=== PATIENT | female | born 1995 | race Hispanic/Latino ===

== ENCOUNTER 2016-08-04 22:50 | Inpatient (IN) | payer OTHER ==
[~2016-08-04] VITALS: Ht 147.3 cm; Wt 68.0 kg
[2016-08-04 22:57] VITALS: BP 138/85
[2016-08-04] MEDS ORDERED: PRENTAB55 PO (23:14)
[2016-08-04] MEDS ORDERED: PENICILLIN G POTASSIUM IV 5 MU in D5W MINI-BAG PLUS 100 ML IV STA (23:18)
[2016-08-04] MEDS: LR 1,000 ML IV SCH (23:58)
[2016-08-05] VITALS (44 sets, daily range): BP systolic 111–157; BP diastolic 57–103
[2016-08-05 00:13] LABS: MEAN CORPUSCULAR HGB CONC 31.3 g/dl (32.0-36.5); MEAN CORPUSCULAR VOLUME 70.2 fl (80.0-96.0); RED CELL DISTRIBUTION WIDTH 14.8 % (11.5-14.5)
[2016-08-05] MEDS ORDERED: FENTANYL 2MCG/ML ROPIVACAINE 0.2% IN 0.9% NACL 200ML IVBAG As Ordered ONE (02:02)
[2016-08-05] MEDS ORDERED: LACTATED RINGER'S 1000 ML IV PRN (03:15)
[2016-08-05] MEDS ORDERED: REFRIGERATOR IV KEYS XX PRN (03:15)
[2016-08-05] MEDS ORDERED: NALOXONE INJ 0.4 MG/1 ML VIAL (J2310) IV PRN (03:15)
[2016-08-05] MEDS ORDERED: EPIDURAL/PCA KEYS XX PRN (03:15)
[2016-08-05] MEDS ORDERED: ONDANSETRON 4MG/2ML VIAL (J2405) IV PRN (03:15)
[2016-08-05] MEDS ORDERED: diphenhydrAMINE INJ 50MG/ML VIAL (J1200) IV PRN (03:15)
[2016-08-05] MEDS ORDERED: FENTANYL/ROPIVACAINE/NACL BAG 200 ML EPIDURAL SCH (03:15)
[2016-08-05] MEDS ORDERED: EPIDURAL COMMENT XX SCH (03:15)
[2016-08-05] MEDS ORDERED: ePHEDrine SULFATE 25 MG/5 ML(5MG/ML) SYRINGE IV PRN (03:15)
[2016-08-05] MEDS: PENICILLIN G POTASSIUM IV 2.5 MU in D5W 100 ML IV SCH ×2 (04:14→07:49)
[2016-08-05] MEDS: LR 1,000 ML IV SCH (07:15)
[2016-08-05] MEDS ORDERED: OXYTOCIN DRIP 30 UNITS in APPROPRIATE DILUENT 1 EA IV SCH (09:30)
[2016-08-05 12:06] LABS: CORD GAS ABE V -1.7; CORD GAS HCO3 V 22.8 MEQ/L; CORD GAS O2 SAT V 72.5 %; CORD GAS PCO2 V 38.4 mmHg; CORD GAS PH V 7.391 UNITS; CORD GAS SBC V 22.2 MEQ/L
[2016-08-05] MEDS ORDERED: ANUSOL HC CREAM 30GM TOP PRN (12:30)
[2016-08-05] MEDS ORDERED: MOM 30ML SUSPENSION UDC PO PRN (12:30)
[2016-08-05] MEDS ORDERED: MEASLES,MUMPS,RUBELLA VACCINE INJ (MMR-II) (90707) SC SCH (12:30)
[2016-08-05] MEDS ORDERED: METHYLERGONOVINE MALEATE 0.2 MG TAB PO PRN (12:30)
[2016-08-05] MEDS ORDERED: RHOGAM 300 MCG (1500 IU) INJ (J2790) IM SCH (12:30)
[2016-08-05] MEDS ORDERED: DIBUCAINE 1% OINTMENT 30GM TOP PRN (12:30)
[2016-08-05] MEDS ORDERED: OXYTOCIN INJ 10 UNITS/ML VIAL (J2590) IV ONE (13:00)
[2016-08-05] MEDS: PRENATAL VITAMIN TAB PO SCH (16:00)
--- NOTE | 2016-08-05 18:08 | IPN ---
DATE: 08/05/2016 The patient and requested circumcision of their male . After discussing the risks and benefits of circumcision and the medical to nonmedical indications, the penile block and aftercare expressed understanding of penile block and aftercare, signed and witnessed the consent form and we await the clearance by the head orthopedic team physician.
[2016-08-05] MEDS: IBUPROFEN 800 MG TAB PO PRN (19:42)
[2016-08-05] MEDS: DOCUSATE SODIUM 100 MG CAP PO PRN (19:42)
[2016-08-06] MEDS: ACETAMINOPHEN 500 MG TAB PO PRN ×2 (03:51→20:02)
[2016-08-06 05:55] VITALS: BP 104/57
--- NOTE | 2016-08-06 07:01 | DN ---
DATE: 08/05/2016 This lady is a 1, now para 1 who was admitted in spontaneous labor at 39 weeks of gestation in active labor. She was GBS positive. Received three doses of antibiotics. Had an artificial rupture of membranes (AROM) at 8 cm draining clear Liqui. Had a category one strip throughout. Epidural in place. At full dilatation, adequate pushing, had a spontaneous delivery of the head. Cord was around the neck x1 tight. She had some gentle traction to the anterior shoulder, it was delivered. The posterior shoulder delivered uneventfully. The rest of the baby delivered, 8 pounds 6 ounces, 3796 grams, a male, of 7 and 8 and one and five minutes respectively. Arterial pH is pending. Venous pH is 7.391, base excess -1.7. Placenta delivered spontaneously thereafter. Three-vessel cord, membranes and tissues intact. Examination of the vagina had a first-degree tear, sewn over with the [id number]. The lateral moran were normal. Cervix was intact. Sphincter was intact. Moderate amount of hemorrhoids were noted. Uterus contracted well down under Pitocin. The patient and baby tolerating the procedure well.
[2016-08-06 07:14] LABS: MEAN CORPUSCULAR HEMOGLOBIN 22.2 pg (27.0-33.0); MEAN CORPUSCULAR VOLUME 71.6 fl (80.0-96.0); RED CELL DISTRIBUTION WIDTH 15.2 % (11.5-14.5); WHITE BLOOD COUNT 11.4 K/mm3 (4.0-10.0)
[2016-08-06] MEDS: PRENATAL VITAMIN TAB PO SCH (09:02)
[2016-08-06 09:24] VITALS: BP 138/69
[2016-08-06] MEDS: IBUPROFEN 800 MG TAB PO PRN (09:36)
[2016-08-06] MEDS: DOCUSATE SODIUM 100 MG CAP PO PRN (10:09)
[2016-08-06 18:00] VITALS: BP_SYST 118; BP_SYST 128; BP_DIAS 62; BP_DIAS 73
[2016-08-07 05:50] VITALS: BP 140/65
[2016-08-07] MEDS: PRENATAL VITAMIN TAB PO SCH (09:00)
[2016-08-07] MEDS ORDERED: ANUS2.5C2 PR (09:11)
[2016-08-07] MEDS ORDERED: COLA100C3 PO (09:11)
[2016-08-07] MEDS ORDERED: ACET50TA PO (09:11)
[2016-08-07] MEDS ORDERED: MOTR200T44 PO (09:11)
[2016-08-07] MEDS ORDERED: DIBU1OIN TOP (09:11)
[2016-08-07] MEDS: DOCUSATE SODIUM 100 MG CAP PO PRN (10:01)
== END 2016-08-07 11:40 | disposition home or self-care (01) | DRG 775 ==
LOC: M LDO 22:50 → M LDI 23:17 → M OBS 08-05 15:50
PROVIDERS: ADMIT Obstetrics & Gynecology; ATTEND Obstetrics & Gynecology
PROC: 10E0XZZ Delivery of Products of Conception, External Approach (ICD-10-PCS; principal; 2016-08-05)
PROC: 0HQ9XZZ Repair Perineum Skin, External Approach (ICD-10-PCS; 2016-08-05)
PROC: 10907ZC Drainage of Amniotic Fluid, Therapeutic from Products of Conception, Via Natural or Artificial Opening (ICD-10-PCS; 2016-08-05)
DX: O69.1XX0 Labor and delivery complicated by cord around neck, with compression, not applicable or unspecified (principal); O70.0 First degree perineal laceration during delivery; Z37.0 Single live birth; O99.820 Streptococcus B carrier state complicating pregnancy; Z3A.39 39 weeks gestation of pregnancy

== ENCOUNTER 2017-08-24 12:17 | Emergency (ER) | payer OTHER ==
[2017-08-24] MEDS: METHOCARBAMOL 500 MG TAB PO (13:34)
[2017-08-24] MEDS: IBUPROFEN 800 MG TAB PO (13:35)
== END 2017-08-24 13:42 | disposition home or self-care (01) ==
LOC: M ED 12:17
DX: S39.012A Strain of muscle, fascia and tendon of lower back, initial encounter (principal); X50.0XXA Overexertion from strenuous movement or load, initial encounter; Y92.099 Unspecified place in other non-institutional residence as the place of occurrence of the external cause; Y93.B3 Activity, free weights; Y99.9 Unspecified external cause status
CPT/HCPCS: 99283

== ENCOUNTER 2017-11-19 02:37 | Emergency (ER) | payer OTHER ==
[2017-11-19] MEDS: ADACEL/BOOSTRIX VACCINE (DIPHTH/PERTUSS/ACELL/TETANUS)0.5ML SYR (90715) IM (06:30)
[2017-11-19] MEDS: KETOROLAC TROMETHAMINE 10 MG TAB PO (06:30)
[2017-11-19] MEDS: BACTRIM 160MG/800MG DS TAB PO (06:30)
[2017-11-19] MEDS: POLYSPORIN TOPICAL OINTMENT 15GM TOP (07:00)
== END 2017-11-19 07:23 | disposition home or self-care (01) ==
LOC: M ED 02:37
DX: S80.12XA Contusion of left lower leg, initial encounter (principal); S81.812A Laceration without foreign body, left lower leg, initial encounter; W22.8XXA Striking against or struck by other objects, initial encounter; Y92.89 Other specified places as the place of occurrence of the external cause; Z79.899 Other long term (current) drug therapy
CPT/HCPCS: 90715

== ENCOUNTER 2017-11-20 10:02 | Emergency (ER) | payer OTHER | END 2017-11-20 10:36 | disposition home or self-care (01) | LOC: M ED 10:02 | DX: L03.116 Cellulitis of left lower limb (principal); Z79.899 Other long term (current) drug therapy | CPT/HCPCS: 99282 ==

== ENCOUNTER 2018-05-24 19:04 | Emergency (ER) | payer OTHER ==
[~2018-05-24] VITALS: Ht 147.3 cm; Wt 68.2 kg
[~2018-05-24 19:04] MED LIST: ACET30TAB PO; ANUS2.5C2 PR; BACT800T5 PO; COLA100C5 PO; DIBU1OIN TOP; IBUP-1022 PO; KETO10TAB PO; LEVA750T7 PO; MAPA500T2 PO; MOTR200T44 PO; PRENTAB55 PO; ROBA500T PO
--- NOTE | 2018-05-24 19:44 | REP ---
Clinical: Trauma. Technique: AP, lateral, bilateral oblique views of the right ankle. Findings: Lateral swelling consist with inversion injury. No acute fracture or dislocation. Ankle mortise intact. No subcutaneous emphysema or radiodense foreign body. Impression: Swelling consist with inversion injury. No acute fracture or dislocation. Electronically Signed by Trino Farmer MD 05/24/2018 07:35 P
[2018-05-24] MEDS ORDERED: NAPR-885 PO (19:46)
[2018-05-24 19:48] VITALS: BP 133/78
[2018-05-24] MEDS ORDERED: NAPROXEN 250 MG TAB PO ONE (20:00)
== END 2018-05-24 19:58 | disposition home or self-care (01) ==
LOC: M ED 19:04
DX: S93.401A Sprain of unspecified ligament of right ankle, initial encounter (principal); X50.0XXA Overexertion from strenuous movement or load, initial encounter; Y92.098 Other place in other non-institutional residence as the place of occurrence of the external cause